=== PATIENT | female | born 1950 | race Caucasian/White ===

== ENCOUNTER 2017-08-23 05:50 | Day surgery (SDC) | payer OTHER ==
[~2017-08-23 05:50] MED LIST: AMOX1TAB5 PO; APETIGEN ELIXI120 ML PO; AVAPRO150 MG PO; SIMETHICONE GA125 MG PO; ULTRACET PO
[2017-08-23] MEDS ORDERED: ULTRACET PO (08:23)
[2017-08-23] MEDS ORDERED: RECTICARE30 GM TOP (08:23)
== END 2017-08-23 13:30 | disposition home or self-care (01) ==
LOC: CIR.AMB 05:50
DX: D12.8 Benign neoplasm of rectum (principal)

== ENCOUNTER 2019-07-13 06:30 | Day surgery (SDC) | payer OTHER ==
[~2019-07-13 06:30] MED LIST changes: +RECTICARE30 GM TOP
== END 2019-07-13 09:43 | disposition home or self-care (01) ==
LOC: AMB-ENDOS 06:30
PROVIDERS: ATTEND Surgery
DX: D12.3 Benign neoplasm of transverse colon (principal)